=== PATIENT | female | born 1950 | race Caucasian/White ===

== ENCOUNTER 2018-05-15 12:52 | Inpatient (IN) | payer OTHER ==
--- NOTE | 2018-05-15 13:56 | PDOC ---
Attending Attestation - Resident Resident Name: Demetrius Coates - ED Attending Attestation I have performed the following: I have examined & evaluated the patient, The case was reviewed & discussed with the resident, I agree w/resident's findings & plan, Exceptions are as noted - HPI HPI: 05/15/18 15:48 The patient is a 67-year-old female, with a history of IDDM, HTN, HLD, CVA, TB ( treated in [place] with unknown regimen), and bradycardia s/p pacemaker, who presents ED with 2 weeks of bloody sputum. She reports sputum mixed with specs of bright red blood 4-5 times per day. Denies coughing up clots or more than a teaspoon of blood at a time. Patient also endorses shortness of breath, night sweats, and subjective fevers and chills. Patient reports that she has a history of TB and was treated in [place] with pills. She also reports 4 lbs weight loss in the past 2 weeks. She denies any fevers/chills, nausea, vomiting, diarrhea, or abdominal pain. Denies any chest pain or palpitations. Allergies: NKA Social History: None reported. Surgical History: Pacemaker placement. PCP: Dr. Ambrosio - Physicial Exam PE: 05/15/18 15:55 agree with resident exam - Medical Decision Making 05/15/18 15:55 67yo F hx TB s/p treatment presents to the ED with shortness of breath, night sweats, and subjective fevers and chills. Vitals unremarkable. Exam with clear lungs. Concern for recurrent TB vs PNA vs PE vs viral syndrome. Plan for labs, XR, CTA, admit. Case discussed with Dr Hung who will see pt 05/15/18 16:[address] Ambrosio at bedside, pt admitted for further eval Case discussed in detail with admitting physician including history, physical exam and ancillary studies. Admitting physician has assumed care for the patient, will follow all pending diagnostics and will complete the evaluation and treatment.
--- NOTE | 2018-05-15 14:11 | PDOC ---
History of Present Illness - General Chief Complaint: Respiratory Stated Complaint: DEHYDRATED Time Seen by Provider: 05/15/18 13:23 History Source: Patient Exam Limitations: No Limitations - History of Present Illness Initial Comments: 67 yo h/o TB treated in [place], TIA, bradycardia s/p pacemaker, IDDM, HTN, HLD p/w blood in sputum x 2 weeks. She endorses 2 weeks of bloody sputum and describes as "a lot of blood in yellow sputum", also a/w night sweat, 4 lbs of weight loss in 2 weeks, subjective fever and chills. Pt recalls being treated for TB with pills in [place] for long time. She came to the [place] in the 80s. Had BCG vaccine when little. PPD -ve since the treatment. She's also SOB at rest and on exertion but denies any h/o heart disease except placement of pacemaker. Further denies n/v, headache, diarrhea, urinary sx. 05/15/18 15:03 Basic labs, CXR showed L upper lobe granuloma w/ chest wall calificaton. Based on clinical presentation and the fact patient was [place], Will admit the patient for TB treatment 05/15/18 18:42 Patient is extremely agitated, combative and refuses CT scan and further treatment. Numerous attempts made by several health care providers including residents, attendings, nurse manager eligibility, security and family members but patient failed to reason due to acute psychotic episode. With the help of security and other health care providers, patient was held down and received 2 mg of haldol IM. CT chest is postphoned. Unable to obtain EKG due to her current mental condition. Therefore, QTc is unknown. However, for acute psychosis management, both benzo (ativan) and haldol will further prolong Qtc. Spoke to Dr. Ambrosio, and he will come to see the patient. Will cancel haldol PRN order and place 1:1 observation order. Past History - Past Medical History Allergies/Adverse Reactions: Allergies Allergy/AdvReac Type Severity Reaction Status Date / Time No Known Allergies Allergy Unverified 05/15/18 13:01 CVA: Yes COPD: No Diabetes: Yes HTN: Yes Seizures: Yes Other medical history: TB - Surgical History Cardiac Surgery: (pacemaker) - Suicide/Smoking/Psychosocial Hx Smoking History: Never smoked Review of Systems - Review of Systems Able to Perform ROS?: Yes Is the patient limited Occitan proficient: No Constitutional: Yes: Chills, Fever, Night Sweats, Unexplained wgt Loss (4 lbs in 2 weeks) Respiratory: Yes: Cough, Shortness of Breath, Productive cough, Hemoptysis Cardiac (ROS): No: Chest Pain, Edema, Irregular Heart Rate, Lightheadedness, Palpitations : No: Dysuria, Discharge Neurological: No: Headache, Numbness, Paresthesia *Physical Exam - Vital Signs Last Vital Signs Temp Pulse Resp BP Pulse Ox 99.1 F 98 H 18 128/81 98 05/15/18 12:58 05/15/18 12:58 05/15/18 12:58 05/15/18 12:58 05/15/18 13:39 - Physical Exam General Appearance: No: Apparent Distress Respiratory/Chest: positive: Lungs Clear, Decreased Breath Sounds. negative: Crackles, Rales, Wheezing Cardiovascular: positive: Regular Rhythm, Regular Rate, S1, S2. negative: Murmur Gastrointestinal/Abdominal: positive: Normal Bowel Sounds. negative: Tender Neurologic: positive: on call II-XII NML intact, Fully Oriented, Alert ED Treatment Course - LABORATORY CBC & Chemistry Diagram: 05/15/18 13:59 05/15/18 13:59 - RADIOLOGY Radiology Studies Ordered: Category Date Time Status CHEST PA & LAT [RAD] Stat Radiology 05/15/18 13:44 Ordered *DC/Admit/Observation/Transfer Diagnosis at time of Disposition: Tuberculosis - Discharge Dispostion Decision to Admit order: Yes - Referrals - Patient Instructions - Post Discharge Activity
[2018-05-15 14:24] LABS: BASO % 0.4 % (0-2.0); EOS % 0.5 % (0-4.5); HEMOGLOBIN 13.3 GM/dL (10.7-15.3); LYMPH % 25.8 % (8-40); MCH 30.3 pg (25.7-33.7); MCHC 34.2 g/dl (32.0-36.0); MEAN CELL VOLUME 88.8 fl (80-96); MEAN PLT VOLUME 7.9 fl (7.5-11.1); MONO % 9.6 % (3.8-10.2); NEUT % 63.7 % (42.8-82.8); PLATELET COUNT 230 K/MM3 (134-434); RDW 14.8 % (11.6-15.6); WHITE BLOOD COUNT 6.5 K/mm3 (4.0-10.0)
[2018-05-15 14:30] LABS: INR 1.13 (0.83-1.09); PROTHROMBIN TIME (PATIENT) 13.3 SEC (9.7-13.0)
[2018-05-15 14:43] LABS: ALBUMIN 3.9 g/dl (3.4-5.0); ALK PHOS 92 U/L (45-117); ANION GAP 10 MMOL/L (8-16); BILIRUBIN,TOTAL 0.7 mg/dL (0.2-1); BLOOD UREA NITROGEN 6 mg/dL (7-18); CALCIUM 8.8 mg/dL (8.5-10.1); CHLORIDE 108 mmol/L (98-107); CO2 23 mmol/L (21-32); CREATININE 0.7 mg/dL (0.55-1.3); GLUCOSE,RANDOM 228 mg/dL (74-106); N-TERMINAL BNP 41.2 pg/ml (5-125); POTASSIUM 3.3 mmol/L (3.5-5.1); SGOT/AST 171 U/L (15-37); SGPT/ALT 86 U/L (13-61); SODIUM 141 mmol/L (136-145); TOT PROT 7.4 g/dl (6.4-8.2)
[2018-05-15] MEDS: SODIUM CHLORIDE 1,000 ML IV SCH ×2 (16:28→21:30)
[2018-05-15] MEDS ORDERED: HALOPERIDOL LACTATE 5 MG/ML IM ONE ×2 (18:08→18:32)
[2018-05-15] MEDS ORDERED: HALOPERIDOL LACTATE 5 MG/ML IM PRN (18:32)
--- NOTE | 2018-05-15 20:10 | HP ---
CHIEF COMPLAINT:blood in sputum for few days PCP:dr Carreon HISTORY OF PRESENT ILLNESS: The patient is a 67-year-old female, with a history of IDDM, HTN, HLD, CVA, TB ( treated in [place] with unknown regimen), and bradycardia s/p pacemaker, who presents ED with 2 weeks of bloody sputum.Now after talking to patient she said that she is bleeding from nose and after she cough up blood . she has no h/o wt loss or night sweats and no body around who has tuberculosis . She reports sputum mixed with specs of bright red blood 4-5 times per day. Denies coughing up clots or more than a teaspoon of blood at a time.She has no h /o any fever or chills she live with her daughter who is with her. Patient reports that she has a history of TB and was treated in [place] with pills. She also reports 4 lbs weight loss in the past 2 weeks. ER course was notable for: (1)blood in phlegm (2)h/o treated TB (3)normal wbc count Recent Travel:none PAST MEDICAL HISTORY: IDDM, HTN, HLD, CVA, TB (treated in [place] with unknown regimen), and bradycardia s/p pacemaker,and bipolar disorder PAST SURGICAL HISTORY: PPm Social History: Smoking:none Alcohol:none Drugs: none Family History: Allergies No Known Allergies Allergy (Unverified 05/15/18 13:01) HOME MEDICATIONS: REVIEW OF SYSTEMS CONSTITUTIONAL: Absent: fever, chills, diaphoresis, generalized weakness, malaise, loss of appetite, weight change HEENT: Absent: rhinorrhea, nasal congestion, throat pain, throat swelling, difficulty swallowing, mouth swelling, ear pain, eye pain, visual changes CARDIOVASCULAR: Absent: chest pain, syncope, palpitations, irregular heart rate, lightheadedness , peripheral edema RESPIRATORY: Absent: shortness of breath, dyspnea with exertion, orthopnea, wheezing, stridor,Present hemoptysis and cough GASTROINTESTINAL: Absent: abdominal pain, abdominal distension, nausea, vomiting, diarrhea, constipation, melena, hematochezia GENITOURINARY: Absent: dysuria, frequency, urgency, hesitancy, hematuria, flank pain, genital pain MUSCULOSKELETAL: Absent: myalgia, arthralgia, joint swelling, back pain, neck pain SKIN: Absent: rash, itching, pallor HEMATOLOGIC/IMMUNOLOGIC: Absent: easy bleeding, easy bruising, lymphadenopathy, frequent infections ENDOCRINE: Absent: unexplained weight gain, unexplained weight loss, heat intolerance, cold intolerance NEUROLOGIC: Absent: headache, focal weakness or paresthesias, dizziness, unsteady gait, seizure, mental status changes, bladder or bowel incontinence PHYSICAL EXAMINATION Vital Signs - 24 hr 05/15/18 05/15/18 05/15/18 12:58 13:39 19:44 Temperature 99.1 F 98.5 F Pulse Rate 98 H 91 H Respiratory 18 20 Rate Blood Pressure 128/81 121/68 O2 Sat by Pulse 97 98 Oximetry (%) GENERAL: Awake, alert, and fully oriented, in no acute distress. HEAD: Normal with no signs of trauma. EYES: Pupils equal, round and reactive to light, extraocular movements intact, sclera anicteric, conjunctiva clear. No lid lag. EARS, NOSE, THROAT: Ears normal, nares patent, oropharynx clear without exudates. Moist mucous membranes.no dry blood noted in her nose NECK: Normal range of motion, supple without lymphadenopathy, JVD, or masses. LUNGS: Breath sounds equal, clear to auscultation bilaterally. No wheezes, and no crackles. No accessory muscle use. HEART: Regular rate and rhythm, normal S1 and S2 without murmur, rub or gallop. ABDOMEN: Soft, nontender, not distended, normoactive bowel sounds, no guarding, no rebound, no masses. No hepatomegaly or splenomegaly. MUSCULOSKELETAL: Normal range of motion at all joints. No bony deformities or tenderness. No CVA tenderness. UPPER EXTREMITIES: 2+ pulses, warm, well-perfused. No cyanosis. No clubbing. No peripheral edema. LOWER EXTREMITIES: 2+ pulses, warm, well-perfused. No calf tenderness. No peripheral edema. NEUROLOGICAL: Cranial nerves II-XII intact. Normal speech. Normal gait. SKIN: Warm, dry, normal turgor, no rashes or lesions noted, normal capillary refill. Laboratory Results - last 24 hr 05/15/18 05/15/18 05/15/18 13:59 13:59 13:59 WBC 6.5 RBC 4.40 Hgb 13.3 Hct 39.0 MCV 88.8 MCH 30.3 MCHC 34.2 RDW 14.8 Plt Count 230 MPV 7.9 Absolute Neuts (auto) 4.1 Neutrophils % 63.7 Lymphocytes % 25.8 Monocytes % 9.6 Eosinophils % 0.5 Basophils % 0.4 Nucleated RBC % 0 PT with INR 13.30 H INR 1.13 H Sodium 141 Potassium 3.3 L Chloride 108 H Carbon Dioxide 23 Anion Gap 10 BUN 6 L Creatinine 0.7 Creat Clearance w eGFR 83.98 Random Glucose 228 H Calcium 8.8 Total Bilirubin 0.7 AST 171 H ALT 86 H Alkaline Phosphatase 92 B-Natriuretic Peptide 41.2 Total Protein 7.4 Albumin 3.9 ASSESSMENT/PLAN: This is 67 yrs old lady with IDDM, HTN, HLD, CVA, TB (treated in [place] with unknown regimen), and bradycardia s/p pacemaker,came to er with questionable h/ o hemoptysis Plan will admit and start on abx and stool for afb times [address] scan of chest ro any cause of bleeding dm start on coverage htn start on norvasc and lisinopril high lipids continue simvastatin d/w son and daughter start on iv fluids dvt prophylaxis is not needed bc she is ambulatory Visit type - Emergency Visit Emergency Visit: Yes ED Registration Date: 05/15/18 Care time: The patient presented to the Emergency Department on the above date and was hospitalized for further evaluation of their emergent condition. - New Patient This patient is new to me today: Yes Date on this admission: 05/15/18 - Critical Care Critical Care patient: No
[2018-05-15 20:34] VITALS: BMI 30.9
[2018-05-15] MEDS ORDERED: CEFTRIAXONE 1 GM in DEXTROSE 5%-WATER - 50 ML IVPB SCH (20:45)
[2018-05-15] MEDS ORDERED: cefTRIAXone SODIUM 1 GM VIAL ONE (21:01)
[2018-05-15] MEDS ORDERED: DEXTROSE 5%-WATER - 50 ML IVPB ONE (21:01)
[2018-05-15] MEDS: INSULIN SLIDING SCALE (NOVOLOG) 1 VIAL SQ SCH (21:22)
[2018-05-15] MEDS: CEFTRIAXONE 1 GM in DEXTROSE 5%-WATER - 50 ML IVPB SCH (21:31)
[2018-05-15] MEDS: AMITRIPTYLINE HCL 25 MG TABLET (FP) PO SCH (22:07)
[2018-05-16] MEDS: LEVOTHYROXINE NA 25 MCG TABLET (FP) PO SCH (06:15)
[2018-05-16] MEDS: INSULIN SLIDING SCALE (NOVOLOG) 1 VIAL SQ SCH ×4 (06:20→22:13)
[2018-05-16] MEDS ORDERED: LEVOTHYROXINE NA 75 MCG TABLET (FP) PO SCH (07:00)
--- NOTE | 2018-05-16 09:15 | PN ---
Progress Note (short form) - Note Progress Note: admitted for hemoptysis and pleuritic chest pain fro past 3-4 days no fever, no chills, lost some weight in past 2 weeks distant TB h/o, treated approx 40 yrs ago in [place] HTN IDDM CVA high cholesterol PPM Vital Signs Period Temp Pulse Resp BP Sys/Lynn Pulse Ox Last 24 Hr 97.8 F-99.1 F 74-98 18-20 116-128/59-81 97-98 S1S2 RRR +SM lung decreased BS at bases, no wheezing, no rhonchi abd soft no edema aaox3 chest CT done-result pending cont iv ceftriaxone for now sputum AFB has been ordered cont isolation replete hypokalemia stop ivfluids ID and pulm eval requested
[2018-05-16] MEDS ORDERED: POTASSIUM CHLORIDE TABS 20 MEQ TABLET.ER (FP) PO ONE (09:30)
--- NOTE | 2018-05-16 10:17 | CON.PULM ---
Consult Consult Specialty:: PULMONARY Referred by:: Dr Ambrosio Reason for Consultation:: hemoptysis - History of Present Illness Chief Complaint: hemoptysis History of Present Illness: 67yo female with h/o HTN, DM, hyperlipidemia, h/o CVA, s/p PPM, h/o TB in the 1970s treated x 1 year who was admitted with cough with hemoptysis x 2 weeks. Denies any chest pain or palpitations. No shortness of breath or wheezing. She describes the hemoptysis as specks of blood. No fevers, chills or sweats. No unintentional weight loss. Does report episodes of epistaxis as well. She is a nonsmoker. No further episodes since admission. - History Source History Provided By: Patient, Medical Record Limitations to Obtaining History: Language Barrier - Past Medical History Cardio/Vascular: Yes: HTN, Hyperlipdemia Endocrine: Yes: Diabetes Mellitus - Alcohol/Substance Use Hx Alcohol Use: No - Smoking History Smoking history: Never smoked Home Medications - Allergies Allergies/Adverse Reactions: Allergies Allergy/AdvReac Type Severity Reaction Status Date / Time No Known Allergies Allergy Unverified 05/15/18 13:01 Review of Systems - Review of Systems Constitutional: denies: Chills, Fever, Weakness Eyes: denies: Recent Change in Vision HENT: denies: Nasal Congestion, Throat Pain Neck: denies: Stiffness, Tenderness Cardiovascular: denies: Chest Pain, Shortness of Breath Respiratory: reports: Cough, Hemoptysis. denies: SOB on Exertion, Wheezing Gastrointestinal: denies: Abdominal Pain, Nausea, Vomiting Genitourinary: denies: Dysuria, Hematuria Neurological: denies: Dizziness, Headache Endocrine: denies: Unexplained Weight Loss Physical Exam Vital Sings: Vital Signs Temperature 98.9 F 05/16/18 07:03 Pulse Rate 74 05/16/18 07:03 Respiratory Rate 20 05/16/18 07:03 Blood Pressure 116/59 L 05/16/18 07:03 O2 Sat by Pulse Oximetry (%) 98 05/15/18 20:22 Constitutional: Yes: Calm Eyes: Yes: Conjunctiva Clear, EOM Intact HENT: Yes: Atraumatic, Normocephalic Neck: Yes: Supple, Trachea Midline Cardiovascular: Yes: Regular Rate and Rhythm Respiratory: Yes: Diminished (decreased breath sounds at the bases) Labs: CBC, BMP 05/15/18 13:59 05/15/18 13:59 Imaging - Results Chest X-ray: Report Reviewed, Image Reviewed (OCTAVIA granuloma) Assessment/Plan Hemoptysis Suspect Epistaxis vs Acute Bronchitis h/o Remote TB HTN DM Hyperlipidemia h/o CVA s/p PPM - agree with CT chest - empiric antibiotics for now - f/u cultures - clinically less likely TB - DVT prophylaxis - further recommendations pending CT chest Thank you for this consult Jordan Hernandez MD
[2018-05-16] MEDS ORDERED: cefTRIAXone SODIUM 1 GM VIAL ONE (10:32)
[2018-05-16] MEDS ORDERED: DEXTROSE 5%-WATER - 50 ML IVPB ONE (10:33)
[2018-05-16] MEDS: CEFTRIAXONE 1 GM in DEXTROSE 5%-WATER - 50 ML IVPB SCH (10:50)
[2018-05-16] MEDS: RAMIPRIL 5 MG CAPSULE (FP) PO SCH (10:50)
[2018-05-16] MEDS: amLODIPine BESYLATE 10 MG TABLET (FP) PO SCH (10:51)
[2018-05-16] MEDS: AZITHROMYCIN IVPB 500 MG/250 ML BAG IVPB SCH (11:11)
--- NOTE | 2018-05-16 13:28 | PN ---
Progress Note (short form) - Note Progress Note: ID consult dictated imp/reccd 67 yo female with cough with flecks of blood in her sputum admitted for hemoptysis history of tb in the 1970s treated one year abnl lfts remote etoh history history of CVA and bipolar disorder agree with afb isolation sputum afb times 3 NAAT for afb chest ct rocephin/zith- ?pna, ?bronchitis hiv testing (she agrees) workup for lfts? check hep c in am repet lfts consider liver sonogram will check with PMD Problem List - Problems (1) Hemoptysis Code(s): R04.2 - HEMOPTYSIS (2) Abnormal LFTs Code(s): R94.5 - ABNORMAL RESULTS OF LIVER FUNCTION STUDIES (3) History of tuberculosis Code(s): Z86.11 - PERSONAL HISTORY OF TUBERCULOSIS
--- NOTE | 2018-05-16 18:14 | CONS ---
DATE OF CONSULTATION: 05/16/2018 DATE OF DICTATION: 05/16/2018 INFECTIOUS DISEASE CONSULTATION HISTORY OF PRESENT ILLNESS: This is a 67-year-old woman who comes to the hospital on the . She lives in the community with her . She came to the ER with her daughter. She gives a history of 2 weeks of cough with some intermittent specks of blood. She has not had any annie hemoptysis. She has had no fevers or chills. She does note that she has lost 4 pounds in the last several weeks. She really has no appetite, and she denies to me any night sweats or shortness of breath. She is originally from [place]. She has been in this country since the 80s. She lives with her . She gives a history of having had tuberculosis treated for 1 year with pills while living in [place] in the 70s. She saw her primary, Dr. Ambrosio, as an outpatient and was treated. She is not sure with what. She actually reports she was feeling better, but her daughter insisted that she come to the hospital. PAST MEDICAL HISTORY: She has a past medical history of diabetes, hypertension, hyperlipidemia, CVA. SOCIAL HISTORY: Notable for a pacemaker. She also has a history of bipolar disorder. There is no history of cigarette or substance use. She has no known drug allergies. She gives a remote history of alcohol use in the past, none for the last 10 years. MEDICATION: Include at home, the list is not available. FAMILY HISTORY: Unremarkable. REVIEW OF SYSTEMS: She reports feeling well. She says she goes every 3 months to get her permanent pacemaker checked, and once a year she sees a doctor for her head. PHYSICAL EXAMINATION: GENERAL: She is awake and alert. She has had no fevers since admission. VITAL SIGNS: Temperature is 98.9, pulse 74, blood pressure 116/59, respiratory rate 20, she weighs 71 kg. HEENT: Normocephalic. Eyes are anicteric. She has good dentition. She has no thrush. NECK: Supple. She has no adenopathy. LUNGS: Clear to auscultation. HEART: Regular rate and rhythm. ABDOMEN: Soft, nontender. EXTREMITIES: Without edema. LABORATORY: Notable for a normal white count of 6.5, normal hemoglobin of 13.3, platelets are 230, INR is 1.1. BUN and creatinine are 6 and 0.7 with a glucose of 228. Of note she has an AST of 171 and an ALT of 86. She had a chest x-ray done in the emergency room that was notable for a left upper lobe granuloma. There was no evidence of infiltrate. IMPRESSION: 1. In summary, this is a 67-year-old woman with a remote history of tuberculosis in the 70s treated for 1 year who now presents with cough with some blood specks in her sputum for the last 2 weeks. This could be bronchitis, this could be less likely reactivation of tuberculosis. Would agree with the isolation with the CAT scan that has been ordered, and sputum AFBs. She has been started on ceftriaxone and Zithromax, which seems appropriate at this time. 2. Abnormal liver function tests, etiology unclear. Will speak with the primary doctor and find out if she has had any further workup or if indeed this is new. She has consented to HIV testing as well, which we will obtained. Further recommendations to follow. Gricelda [id number]
[2018-05-16] MEDS: AMITRIPTYLINE HCL 25 MG TABLET (FP) PO SCH (22:07)
[2018-05-17] MEDS: INSULIN SLIDING SCALE (NOVOLOG) 1 VIAL SQ SCH ×4 (06:04→21:55)
[2018-05-17] MEDS: LEVOTHYROXINE NA 25 MCG TABLET (FP) PO SCH (06:04)
[2018-05-17 06:13] LABS: BASO % 0.3 % (0-2.0); EOS % 1.8 % (0-4.5); HEMATOCRIT 40.6 % (32.4-45.2); HEMOGLOBIN 13.8 GM/dL (10.7-15.3); LYMPH % 35.2 % (8-40); MCH 30.1 pg (25.7-33.7); MEAN CELL VOLUME 88.7 fl (80-96); MEAN PLT VOLUME 7.7 fl (7.5-11.1); MONO % 9.1 % (3.8-10.2); NEUT % 53.6 % (42.8-82.8); PLATELET COUNT 230 K/MM3 (134-434); RBC 4.58 M/mm3 (3.60-5.2); RDW 14.4 % (11.6-15.6); WHITE BLOOD COUNT 6.7 K/mm3 (4.0-10.0)
[2018-05-17 06:42] LABS: ALBUMIN 3.8 g/dl (3.4-5.0); BILIRUBIN,DIRECT 0.3 mg/dL (0.0-0.2); TOT PROT 7.3 g/dl (6.4-8.2)
[2018-05-17 06:43] LABS: ALBUMIN 3.7 g/dl (3.4-5.0); ALK PHOS 88 U/L (45-117); ANION GAP 8 MMOL/L (8-16); BILIRUBIN,TOTAL 0.8 mg/dL (0.2-1); BLOOD UREA NITROGEN 8 mg/dL (7-18); CALCIUM 8.5 mg/dL (8.5-10.1); CHLORIDE 106 mmol/L (98-107); CO2 26 mmol/L (21-32); CREATININE 0.6 mg/dL (0.55-1.3); GLUCOSE,RANDOM 139 mg/dL (74-106); POTASSIUM 3.2 mmol/L (3.5-5.1); SGOT/AST 109 U/L (15-37); SGPT/ALT 83 U/L (13-61); SODIUM 141 mmol/L (136-145); TOT PROT 7.3 g/dl (6.4-8.2)
[2018-05-17] MEDS ORDERED: DEXTROSE 5%-WATER - 50 ML IVPB ONE (09:00)
[2018-05-17] MEDS ORDERED: cefTRIAXone SODIUM 1 GM VIAL ONE (09:00)
[2018-05-17] MEDS: RAMIPRIL 5 MG CAPSULE (FP) PO SCH (09:16)
[2018-05-17] MEDS: POTASSIUM CHLORIDE TABS 20 MEQ TABLET.ER (FP) PO SCH (09:16)
[2018-05-17] MEDS: AZITHROMYCIN IVPB 500 MG/250 ML BAG IVPB SCH (09:16)
[2018-05-17] MEDS: amLODIPine BESYLATE 10 MG TABLET (FP) PO SCH (09:17)
[2018-05-17] MEDS: CEFTRIAXONE 1 GM in DEXTROSE 5%-WATER - 50 ML IVPB SCH (09:17)
--- NOTE | 2018-05-17 09:18 | PN ---
Progress Note (short form) - Note Progress Note: CBC, BMP 05/17/18 05:10 05/17/18 05:10 Vital Signs Period Temp Pulse Resp BP Sys/Lynn Pulse Ox Last 24 Hr 97.7 F-98.2 F 78-102 18-20 83-142/57-76 93 Microbiology 05/16/18 11:10 Sputum - Expectorated Direct Acid Fast Bacilli Smear positive 05/15/18 13:59 Blood - Peripheral Venous Blood Culture - Preliminary NO GROWTH OBTAINED AFTER 24 HOURS, INCUBATION TO CONTINUE FOR 4 DAYS. 05/15/18 13:59 Blood - Peripheral Venous Blood Culture - Preliminary NO GROWTH OBTAINED AFTER 24 HOURS, INCUBATION TO CONTINUE FOR 4 DAYS. S1S2 RRR +SM lung decreased BS at bases, no wheezing, no rhonchi abd soft no edema aaox3 admitted for hemoptysis and pleuritic chest pain fro past 3-4 days no fever, no chills, lost some weight in past 2 weeks distant TB h/o, treated approx 40 yrs ago in [place] HTN IDDM CVA high cholesterol PPM Bipolar disorder chest CT with old granulomatous disease-no active infiltrate known cirrhosis as per daughter, distant h/o alcoholism does not drink any more cont iv ceftriaxone for now sputum AFB x3 cont isolation replete hypokalemia right breast mass-most recent mammo at [facility] showed calcified stable breast masses, once pt is discharged will have to f/up for repeat outpt imaging ID and pulm bianka appreciated d/w daughter at length
--- NOTE | 2018-05-17 10:17 | PN ---
Progress Note (short form) - Note Progress Note: PULMONARY No further hemoptysis. No fevers or chills. CT chest showing OCTAVIA granuloma and fibrotic changes. Sputum positive for rare AFB. Vital Signs Period Temp Pulse Resp BP Sys/Lynn Pulse Ox Last 24 Hr 97.7 F-98.3 F 78-102 18-20 83-142/57-84 93 Gen: NAD at rest Heart: RRR Lung: decreased breath sounds at the bases Abd: soft, nontender Ext: no edema CBC, BMP 05/17/18 05:10 05/17/18 05:10 Active Medications Amitriptyline HCl (Elavil -) 25 mg PO HS [facility] Last Admin: 05/16/18 22:07 Dose: 25 mg Amlodipine Besylate (Norvasc -) 10 mg PO DAILY [facility] Last Admin: 05/17/18 09:17 Dose: 10 mg Ceftriaxone Sodium 1 gm/ (Dextrose) 50 mls @ 100 mls/hr IVPB DAILY [facility]; Protocol Last Admin: 05/17/18 09:17 Dose: 100 mls/hr Azithromycin (Zithromax 500mg Ivpb (Pre-Docked)) 500 mg in 250 mls @ 250 mls/ hr IVPB DAILY [facility] Stop: 05/20/18 10:59 Last Admin: 05/17/18 09:16 Dose: 250 mls/hr Insulin Aspart (Novolog Vial Sliding Scale -) 1 vial SQ ACHS [facility]; Protocol Last Admin: 05/17/18 06:04 Dose: Not Given Levothyroxine Sodium (Synthroid -) 25 mcg PO DAILY@0700 [facility] Last Admin: 05/17/18 06:04 Dose: 25 mcg Potassium Chloride (K-Dur -) 40 meq PO DAILY [facility] Last Admin: 05/17/18 09:16 Dose: 40 meq Ramipril (Altace -) 10 mg PO DAILY [facility] Last Admin: 05/17/18 09:16 Dose: 10 mg A/P Hemoptysis Suspect Epistaxis vs Acute Bronchitis h/o Remote TB Liver Cirrhosis HTN DM Hyperlipidemia h/o CVA s/p PPM - continue empiric antibiotics - f/u cultures - clinically less likely TB, await PCR - replete lytes - DVT prophylaxis
[2018-05-17] MEDS ORDERED: PT OWN MED DRAWER 7, Y5N ONE (21:10)
[2018-05-17] MEDS: AMITRIPTYLINE HCL 25 MG TABLET (FP) PO SCH (21:46)
[2018-05-18] MEDS: LEVOTHYROXINE NA 25 MCG TABLET (FP) PO SCH (06:05)
[2018-05-18] MEDS: INSULIN SLIDING SCALE (NOVOLOG) 1 VIAL SQ SCH ×4 (06:11→22:46)
[2018-05-18 07:36] LABS: ANION GAP 8 MMOL/L (8-16); BLOOD UREA NITROGEN 8 mg/dL (7-18); CALCIUM 8.4 mg/dL (8.5-10.1); CHLORIDE 103 mmol/L (98-107); CO2 28 mmol/L (21-32); CREATININE 0.6 mg/dL (0.55-1.3); GLUCOSE,RANDOM 140 mg/dL (74-106); POTASSIUM 3.4 mmol/L (3.5-5.1); SODIUM 139 mmol/L (136-145)
[2018-05-18] MEDS ORDERED: cefTRIAXone SODIUM 1 GM VIAL ONE (11:31)
[2018-05-18] MEDS ORDERED: DEXTROSE 5%-WATER - 50 ML IVPB ONE (11:31)
[2018-05-18] MEDS: CEFTRIAXONE 1 GM in DEXTROSE 5%-WATER - 50 ML IVPB SCH (11:37)
[2018-05-18] MEDS: RAMIPRIL 5 MG CAPSULE (FP) PO SCH (11:38)
[2018-05-18] MEDS: POTASSIUM CHLORIDE TABS 20 MEQ TABLET.ER (FP) PO SCH (11:38)
[2018-05-18] MEDS: AZITHROMYCIN IVPB 500 MG/250 ML BAG IVPB SCH (11:38)
[2018-05-18] MEDS: amLODIPine BESYLATE 10 MG TABLET (FP) PO SCH (11:38)
--- NOTE | 2018-05-18 13:27 | PN ---
Progress Note (short form) - Note Progress Note: CBC, BMP 05/17/18 05:10 05/17/18 05:10 Vital Signs Period Temp Pulse Resp BP Sys/Lynn Pulse Ox Last 24 Hr 97.7 F-98.2 F 78-102 18-20 83-142/57-76 93 Microbiology 05/16/18 11:10 Sputum - Expectorated Direct Acid Fast Bacilli Smear positive , MTB probe negative 05/15/18 13:59 Blood - Peripheral Venous Blood Culture - Preliminary NO GROWTH OBTAINED AFTER 24 HOURS, INCUBATION TO CONTINUE FOR 4 DAYS. 05/15/18 13:59 Blood - Peripheral Venous Blood Culture - Preliminary NO GROWTH OBTAINED AFTER 24 HOURS, INCUBATION TO CONTINUE FOR 4 DAYS. Vital Signs Period Temp Pulse Resp BP Sys/Lynn Pulse Ox Last 24 Hr 98.1 F-98.7 F 78-101 18-20 131-138/77-87 S1S2 RRR +SM lung clear abd soft no edema aaox3 admitted for hemoptysis and pleuritic chest pain fro past 3-4 days no fever, no chills, lost some weight in past 2 weeks distant TB h/o, treated approx 40 yrs ago in [place] HTN IDDM CVA high cholesterol PPM Bipolar disorder chest CT with old granulomatous disease-no active infiltrate known cirrhosis as per daughter, distant h/o alcoholism does not drink any more cont iv ceftriaxone for now sputum AFB x3 cont isolation replete hypokalemia right breast mass-most recent mammo at [facility] showed calcified stable breast masses, once pt is discharged will have to f/up for repeat outpt imaging ID and pulm eval appreciated cont present care
--- NOTE | 2018-05-18 14:15 | PN ---
Progress Note (short form) - Note Progress Note: no fevers cough has resolved Vital Signs Period Temp Pulse Resp BP Sys/Lynn Pulse Ox Last 24 Hr 98.1 F-98.5 F 78-101 18-20 114-138/67-87 cor-rrr lungs clear abd soft,nt ext no edema CBC, BMP 05/17/18 05:10 05/18/18 06:30 Microbiology 05/17/18 16:35 Sputum - Expectorated AFB Smear Concentration - Preliminary 05/17/18 16:35 Sputum - Expectorated Direct Acid Fast Bacilli Smear - Final 05/17/18 16:35 Sputum - Expectorated Mycobacterial Culture - Preliminary 05/15/18 13:59 Blood - Peripheral Venous Blood Culture - Preliminary NO GROWTH OBTAINED AFTER 72 HOURS, INCUBATION TO CONTINUE FOR 2 DAYS. 05/15/18 13:59 Blood - Peripheral Venous Blood Culture - Preliminary NO GROWTH OBTAINED AFTER 72 HOURS, INCUBATION TO CONTINUE FOR 2 DAYS. 05/16/18 22:00 Sputum - Expectorated AFB Smear Concentration - Final 05/16/18 22:00 Sputum - Expectorated Direct Acid Fast Bacilli Smear - Final 05/16/18 22:00 Sputum - Expectorated Mycobacterial Culture - Preliminary 05/16/18 11:10 Sputum - Expectorated AFB Smear Concentration - Final 05/16/18 11:10 Sputum - Expectorated Direct Acid Fast Bacilli Smear - Final HIV negative history of CVA and bipolar disorder a/p continue afb isolation sputum afb times 3 NAAT for afb chest ct no acute changes noted rocephin/zith- ?pna, ?bronchitis ?liver cirrhosis- prior history etoh use d/w PMD awaiting 3rd sputum afb and NAAT ?atypical mycobacteria Problem List - Problems (1) Hemoptysis Code(s): R04.2 - HEMOPTYSIS (2) Abnormal LFTs Code(s): R94.5 - ABNORMAL RESULTS OF LIVER FUNCTION STUDIES (3) History of tuberculosis Code(s): Z86.11 - PERSONAL HISTORY OF TUBERCULOSIS
--- NOTE | 2018-05-18 15:14 | PN ---
Progress Note (short form) - Note Progress Note: PULMONARY No further hemoptysis. No fevers or chills. MTB complex negative x 1. Vital Signs Period Temp Pulse Resp BP Sys/Lynn Pulse Ox Last 24 Hr 98.1 F-98.7 F 78-101 18-20 131-138/77-87 Gen: NAD at rest Heart: RRR Lung: decreased breath sounds at the bases Abd: soft, nontender Ext: no edema CBC, BMP 05/17/18 05:10 05/18/18 06:30 Active Medications Amitriptyline HCl (Elavil -) 25 mg PO HS RIGOBERTO Last Admin: 05/17/18 21:46 Dose: 25 mg Amlodipine Besylate (Norvasc -) 10 mg PO DAILY RIGOBERTO Last Admin: 05/18/18 11:38 Dose: 10 mg Ceftriaxone Sodium 1 gm/ (Dextrose) 50 mls @ 100 mls/hr IVPB DAILY [facility]; Protocol Last Admin: 05/18/18 11:37 Dose: 100 mls/hr Azithromycin (Zithromax 500mg Ivpb (Pre-Docked)) 500 mg in 250 mls @ 250 mls/ hr IVPB DAILY RIGOBERTO Stop: 05/20/18 10:59 Last Admin: 05/18/18 11:38 Dose: 250 mls/hr Insulin Aspart (Novolog Vial Sliding Scale -) 1 vial SQ ACHS RIGOBERTO; Protocol Last Admin: 05/18/18 11:41 Dose: 4 units Levothyroxine Sodium (Synthroid -) 25 mcg PO DAILY@0700 RIGOBERTO Last Admin: 05/18/18 06:05 Dose: 25 mcg Potassium Chloride (K-Dur -) 40 meq PO DAILY RIGOBERTO Last Admin: 05/18/18 11:38 Dose: 40 meq Ramipril (Altace -) 10 mg PO DAILY RIGOBERTO Last Admin: 05/18/18 11:38 Dose: 10 mg A/P Hemoptysis resolved Suspect Epistaxis vs Acute Bronchitis h/o Remote TB Liver Cirrhosis HTN DM Hyperlipidemia h/o CVA s/p PPM - continue empiric antibiotics - f/u cultures - clinically less likely TB, await PCR - replete lytes - DVT prophylaxis
[2018-05-18] MEDS ORDERED: PT OWN MED DRAWER 7, Y5N ONE (21:11)
[2018-05-18] MEDS: AMITRIPTYLINE HCL 25 MG TABLET (FP) PO SCH (22:49)
[2018-05-19] MEDS: LEVOTHYROXINE NA 25 MCG TABLET (FP) PO SCH (06:29)
[2018-05-19] MEDS: INSULIN SLIDING SCALE (NOVOLOG) 1 VIAL SQ SCH ×4 (06:30→22:24)
[2018-05-19] MEDS ORDERED: INSULIN (NOVOLOG) ASPART 100 UNITS/ML 10ML VIAL ONE (07:05)
[2018-05-19 07:34] LABS: BASO % 0.4 % (0-2.0); EOS % 2.6 % (0-4.5); HEMATOCRIT 41.8 % (32.4-45.2); HEMOGLOBIN 14.3 GM/dL (10.7-15.3); LYMPH % 31.5 % (8-40); MCH 30.4 pg (25.7-33.7); MCHC 34.3 g/dl (32.0-36.0); MEAN CELL VOLUME 88.5 fl (80-96); NEUT % 56.5 % (42.8-82.8); PLATELET COUNT 243 K/MM3 (134-434); RBC 4.72 M/mm3 (3.60-5.2); RDW 14.3 % (11.6-15.6); WHITE BLOOD COUNT 6.6 K/mm3 (4.0-10.0)
[2018-05-19 08:03] LABS: ALBUMIN 3.7 g/dl (3.4-5.0); ALK PHOS 109 U/L (45-117); ANION GAP 8 MMOL/L (8-16); BILIRUBIN,DIRECT 0.2 mg/dL (0.0-0.2); BILIRUBIN,TOTAL 0.7 mg/dL (0.2-1); BLOOD UREA NITROGEN 10 mg/dL (7-18); CALCIUM 9.1 mg/dL (8.5-10.1); CHLORIDE 103 mmol/L (98-107); CO2 27 mmol/L (21-32); CREATININE 0.6 mg/dL (0.55-1.3); GLUCOSE,RANDOM 159 mg/dL (74-106); POTASSIUM 3.9 mmol/L (3.5-5.1); SGOT/AST 56 U/L (15-37); SGPT/ALT 69 U/L (13-61); SODIUM 138 mmol/L (136-145); TOT PROT 7.7 g/dl (6.4-8.2)
--- NOTE | 2018-05-19 08:41 | PN ---
Progress Note (short form) - Note Progress Note: CBC, BMP 05/19/18 06:05 05/19/18 06:05 Vital Signs Period Temp Pulse Resp BP Sys/Lynn Pulse Ox Last 24 Hr 97.9 F-98.5 F 81-101 18-20 114-156/67-93 97-97 S1S2 RRR +SM lung clear abd soft no edema aaox3 feeling well, no cough, no hemoptysis admitted for hemoptysis and pleuritic chest pain no fever, no chills, lost some weight in past 2 weeks distant TB h/o, treated approx 40 yrs ago in [place] HTN IDDM CVA high cholesterol PPM Bipolar disorder chest CT with old granulomatous disease-no active infiltrate known cirrhosis as per daughter, distant h/o alcoholism does not drink any more cont iv ceftriaxone/azythromycin for now sputum AFB x3 cont isolation replete hypokalemia right breast mass-most recent mammo at [facility] showed calcified stable breast masses, once pt is discharged will have to f/up for repeat outpt imaging ID and pulm eval appreciated cont present care awaiting sputum AFBs x3
--- NOTE | 2018-05-19 10:00 | PN ---
Progress Note (short form) - Note Progress Note: PULMONARY Minimal cough. No hemoptysis. No fevers or chills. Vital Signs Period Temp Pulse Resp BP Sys/Lynn Pulse Ox Last 24 Hr 97.9 F-98.5 F 81-101 18-20 114-156/67-93 97 Gen: NAD at rest Heart: RRR Lung: decreased breath sounds at the bases Abd: soft, nontender Ext: no edema CBC, BMP 05/19/18 06:05 05/19/18 06:05 Active Medications Amitriptyline HCl (Elavil -) 25 mg PO HS COUNT INCLUDES THE [facility] Last Admin: 05/18/18 22:49 Dose: 25 mg Amlodipine Besylate (Norvasc -) 10 mg PO DAILY RIGOBERTO Last Admin: 05/18/18 11:38 Dose: 10 mg Ceftriaxone Sodium 1 gm/ (Dextrose) 50 mls @ 100 mls/hr IVPB DAILY COUNT INCLUDES THE [facility]; Protocol Last Admin: 05/18/18 11:37 Dose: 100 mls/hr Azithromycin (Zithromax 500mg Ivpb (Pre-Docked)) 500 mg in 250 mls @ 250 mls/ hr IVPB DAILY RIGOBERTO Stop: 05/20/18 10:59 Last Admin: 05/18/18 11:38 Dose: 250 mls/hr Insulin Aspart (Novolog Vial Sliding Scale -) 1 vial SQ ACHS RIGOBERTO; Protocol Last Admin: 05/19/18 06:30 Dose: 2 units Levothyroxine Sodium (Synthroid -) 25 mcg PO DAILY@0700 RIGOBERTO Last Admin: 05/19/18 06:29 Dose: 25 mcg Potassium Chloride (K-Dur -) 40 meq PO DAILY RIGOBERTO Last Admin: 05/18/18 11:38 Dose: 40 meq Ramipril (Altace -) 10 mg PO DAILY RIGOBERTO Last Admin: 05/18/18 11:38 Dose: 10 mg A/P Hemoptysis resolved Suspect Epistaxis vs Acute Bronchitis h/o Remote TB Liver Cirrhosis HTN DM Hyperlipidemia h/o CVA s/p PPM - complete empiric antibiotics per ID - clinically less likely TB, await pending studies - DVT prophylaxis
[2018-05-19] MEDS ORDERED: cefTRIAXone SODIUM 1 GM VIAL ONE (11:10)
[2018-05-19] MEDS ORDERED: DEXTROSE 5%-WATER - 50 ML IVPB ONE (11:10)
[2018-05-19] MEDS: CEFTRIAXONE 1 GM in DEXTROSE 5%-WATER - 50 ML IVPB SCH (11:16)
[2018-05-19] MEDS: AZITHROMYCIN IVPB 500 MG/250 ML BAG IVPB SCH (11:21)
[2018-05-19] MEDS: RAMIPRIL 5 MG CAPSULE (FP) PO SCH (11:23)
[2018-05-19] MEDS: amLODIPine BESYLATE 10 MG TABLET (FP) PO SCH (11:23)
[2018-05-19] MEDS: POTASSIUM CHLORIDE TABS 20 MEQ TABLET.ER (FP) PO SCH (11:24)
[2018-05-19] MEDS ORDERED: PT OWN MED DRAWER 7, Y5N ONE (21:36)
[2018-05-19] MEDS: AMITRIPTYLINE HCL 25 MG TABLET (FP) PO SCH (22:24)
[2018-05-20] MEDS: LEVOTHYROXINE NA 25 MCG TABLET (FP) PO SCH (06:17)
[2018-05-20] MEDS: INSULIN SLIDING SCALE (NOVOLOG) 1 VIAL SQ SCH (06:17)
[2018-05-20 06:22] VITALS: BP 127/73; PULSE 77; TEMP 98.1
[2018-05-20] MEDS ORDERED: cefTRIAXone SODIUM 1 GM VIAL ONE (09:19)
[2018-05-20] MEDS ORDERED: DEXTROSE 5%-WATER - 50 ML IVPB ONE (09:20)
--- NOTE | 2018-05-20 09:23 | DS ---
Physical Examination Vital Signs: Vital Signs Temperature 98.1 F 05/20/18 06:00 Pulse Rate 77 05/20/18 06:00 Respiratory Rate 20 05/20/18 06:00 Blood Pressure 127/73 05/20/18 06:00 O2 Sat by Pulse Oximetry (%) 97 05/19/18 21:00 Constitutional: Yes: No Distress, Calm Eyes: Yes: EOM Intact HENT: Yes: Normocephalic Neck: Yes: Trachea Midline Cardiovascular: Yes: Regular Rate and Rhythm Respiratory: Yes: CTA Bilaterally Edema: No Integumentary: Yes: Other (iv site phlebitis present over right forearm) Psychiatric: Yes: WNL Labs: CBC, BMP 05/19/18 06:05 05/19/18 06:05 Discharge Summary Reason For Visit: Hemoptysis Current Active Problems Abnormal LFTs (Acute) Hemoptysis (Acute) History of tuberculosis (Acute) Tuberculosis (Acute) Hospital Course: came to er with c/o scant hemoptysis, given past h/o treated TB was placed on resp. isolation. her three sputums are AFB positive, but MTB probe negative, clinically she has no further hemoptysis, no fever, no chills CT shows old granulomatous disease, n o acute infiltrate pt has no fever, no chills, no cough at present d/w ID , ok to discharge her home with outpt f/up developed mild phlebitis on right forearm over iv site, apply cold packs and oral keflex for 5 days Condition: Fair - Instructions Diet, Activity, Other Instructions: f/up in office next week cold packs to right forearm phlebitis Disposition: HOME - Home Medications Comprehensive Discharge Medication List: Ambulatory Orders Amitriptyline HCl [Elavil -] 25 mg PO HS tablet 05/20/18 Amlodipine Besylate [Norvasc -] 10 mg PO DAILY tablet 05/20/18 Cephalexin [Keflex] 500 mg PO TID #15 capsule 05/20/18 Insulin Sliding Scale [Novolog Vial Sliding Scale -] 1 vial SQ ACHS units 05/20 Levothyroxine [Synthroid -] 25 mcg PO DAILY@0700 tablet 05/20/18 Ramipril [Altace] 10 mg PO DAILY capsule 05/20/18
[2018-05-20] MEDS: RAMIPRIL 5 MG CAPSULE (FP) PO SCH (09:30)
[2018-05-20] MEDS: amLODIPine BESYLATE 10 MG TABLET (FP) PO SCH (09:30)
[2018-05-20] MEDS: POTASSIUM CHLORIDE TABS 20 MEQ TABLET.ER (FP) PO SCH (09:30)
[2018-05-20] MEDS: CEFTRIAXONE 1 GM in DEXTROSE 5%-WATER - 50 ML IVPB SCH (09:31)
[2018-05-20] MEDS: AZITHROMYCIN IVPB 500 MG/250 ML BAG IVPB SCH (09:32)
== END 2018-05-20 10:18 | disposition home or self-care (01) | DRG 202 ==
LOC: JER 12:52 → JERBED 15:12 → J8W 19:39
PROVIDERS: ADMIT Internal Medicine; ATTEND Internal Medicine
DX: J20.9 Acute bronchitis, unspecified (principal); R04.2 Hemoptysis; T80.1XXA Vascular complications following infusion, transfusion and therapeutic injection, initial encounter; I10 Essential (primary) hypertension; I80.8 Phlebitis and thrombophlebitis of other sites; E11.9 Type 2 diabetes mellitus without complications; E87.6 Hypokalemia; K74.60 Unspecified cirrhosis of liver; F10.11 Alcohol abuse, in remission; J84.10 Pulmonary fibrosis, unspecified; N63.0 Unspecified lump in unspecified breast; Z86.11 Personal history of tuberculosis; Z79.4 Long term (current) use of insulin; Z86.73 Personal history of transient ischemic attack (TIA), and cerebral infarction without residual deficits; Z95.0 Presence of cardiac pacemaker; R00.1 Bradycardia, unspecified; F31.9 Bipolar disorder, unspecified
CPT/HCPCS: 36415; 71046-TC-FY; 71250-TC; 80048; 80053; 80076; 82962; 83880; 85025; 85610; 86803; 87040; 87070; 87116; 87205; 87206; 87389; 99284-25; J7030

== ENCOUNTER 2021-11-13 07:16 | Emergency (ER) | payer OTHER ==
[2021-11-13] MEDS ORDERED: levETIRAcetam 500 MG/5 ML INJECTION VIAL IVPB ONE ×2 (07:41→07:55)
[2021-11-13] MEDS ORDERED: NICARDIPINE 25 MG in DEXTROSE 5%-WATER - 240 ML IVPB SCH (07:45)
[2021-11-13 07:50] VITALS: RESP 15
[2021-11-13 07:54] VITALS: TEMP 98
[2021-11-13 08:22] LABS: BASO % 0.4 % (0-2.0); EOS % 0.5 % (0-4.5); HEMOGLOBIN 14.6 GM/dL (10.7-15.3); LYMPH % 14.1 % (8-40); MCH 30.3 pg (25.7-33.7); MCHC 33.9 g/dl (32.0-36.0); MEAN CELL VOLUME 89.2 fl (80-96); MEAN PLT VOLUME 7.7 fl (7.5-11.1); MONO % 8.8 % (3.8-10.2); NEUT % 76.2 % (42.8-82.8); PLATELET COUNT 206 10^3/uL (134-434); RBC 4.82 M/mm3 (3.60-5.2); RDW 13.5 % (11.6-15.6); WHITE BLOOD COUNT 8.2 K/mm3 (4.0-10.0)
[2021-11-13 08:35] VITALS: BP 176/90; PULSE 81
[2021-11-13 08:39] LABS: CALCIUM 9.1 mg/dL (8.5-10.1)
[2021-11-13 08:40] LABS: ALBUMIN 3.6 g/dl (3.4-5.0)
[2021-11-13 08:41] LABS: BLOOD UREA NITROGEN 10.2 mg/dL (7-18)
[2021-11-13 08:44] LABS: CREATININE 0.5 mg/dL (0.55-1.3)
[2021-11-13 08:45] LABS: TOT PROT 7.6 g/dl (6.4-8.2)
[2021-11-13 08:46] LABS: BILIRUBIN,TOTAL 0.6 mg/dL (0.2-1)
[2021-11-13 08:51] LABS: EPI CELLS 3 /uL (0-25.1); HYALINE CASTS 0 /uL (0-3.1); PH,URINE 7.5 (5.0-8.0); URINE APPEARANCE CLEAR; URINE BACTERIA 3 /uL (0-1359); URINE BILIRUBIN NEGATIVE (NEGATIVE); URINE COLOR YELLOW; URINE GLUCOSE (UA) 1+ (NEGATIVE); URINE KETONE NEGATIVE (NEGATIVE); URINE LEUK ESTERASE NEGATIVE (NEGATIVE); URINE NITRITE NEGATIVE (NEGATIVE); URINE PROTEIN 2+ (NEGATIVE); URINE RBC 2 /uL (0-23.9); URINE WBC 3 /uL (0-25.8)
[2021-11-13 09:28] LABS: ACTIVATED PTT 29.8 SECONDS (25.2-36.5)
[2021-11-13 09:29] LABS: INR 1.08 (0.83-1.09); PROTHROMBIN TIME (PATIENT) 12.4 SEC (9.7-13.0)
== END 2021-11-13 08:30 | disposition short-term general hospital (02) ==
LOC: JER 07:16
PROC: 3E033GC Introduction of Other Therapeutic Substance into Peripheral Vein, Percutaneous Approach (ICD-10-PCS; principal; 2021-11-13)
DX: I61.9 Nontraumatic intracerebral hemorrhage, unspecified (principal)
CPT/HCPCS: 36415; 70450-TC; 71045-TC-FY; 80053; 80061; 81003; 82550; 82962; 83036; 84484; 85025; 85610; 85730; 86850; 86900; 86901; 93005; 93010; 99285-25; C9803-CS; U0003; U0005

== ENCOUNTER 2021-12-28 10:03 | Observation (INO) | payer OTHER ==
[2021-12-28 10:51] VITALS: BMI 29.2
[2021-12-28 11:26] LABS: BASO % 0.5 % (0-2.0); EOS % 3.1 % (0-4.5); HEMATOCRIT 43.7 % (32.4-45.2); LYMPH % 21.2 % (8-40); MCH 30.6 pg (25.7-33.7); MCHC 34.3 g/dl (32.0-36.0); MEAN CELL VOLUME 89.2 fl (80-96); MEAN PLT VOLUME 7.6 fl (7.5-11.1); MONO % 12.7 % (3.8-10.2); NEUT % 62.5 % (42.8-82.8); PLATELET COUNT 238 10^3/uL (134-434); RDW 14.8 % (11.6-15.6); WHITE BLOOD COUNT 5.2 K/mm3 (4.0-10.0)
[2021-12-28 11:37] LABS: INR 1.08 (0.83-1.09); PROTHROMBIN TIME (PATIENT) 12.4 SEC (9.7-13.0)
[2021-12-28 11:40] LABS: ACTIVATED PTT 28.9 SECONDS (25.2-36.5)
[2021-12-28 11:46] LABS: CALCIUM 11.4 mg/dL (8.5-10.1); MAGNESIUM 1.5 mg/dL (1.8-2.4)
[2021-12-28 11:48] LABS: ALBUMIN 3.2 g/dl (3.4-5.0)
[2021-12-28 11:50] LABS: CREATININE 0.6 mg/dL (0.55-1.3); PHOSPHOROUS 3.2 mg/dL (2.5-4.9)
[2021-12-28 11:52] LABS: BILIRUBIN,TOTAL 0.6 mg/dL (0.2-1); TOT PROT 7.3 g/dl (6.4-8.2)
[2021-12-28] MEDS ORDERED: metoPROLOL SUCCINATE 25 MG TAB.SR.24H (FP) PO SCH (14:45)
[2021-12-28] MEDS ORDERED: ACETAMINOPHEN 325 MG TABLET (FP) ONE (20:10)
[2021-12-28] MEDS: ACETAMINOPHEN 325 MG TABLET (FP) PO PRN (20:12)
[2021-12-28] MEDS ORDERED: ATORVASTATIN CA 40 MG TABLET (FP) ONE (23:40)
[2021-12-28] MEDS: INSULIN (LEVEMIR) 100 UNITS/ML UNITS SQ SCH (23:44)
[2021-12-28] MEDS: ATORVASTATIN CA 40 MG TABLET (FP) PO SCH (23:45)
[2021-12-29] MEDS: AMITRIPTYLINE HCL 25 MG TABLET PO SCH ×2 (05:10→22:50)
[2021-12-29 07:30] LABS: BASO % 0.3 % (0-2.0); EOS % 3.1 % (0-4.5); HEMATOCRIT 42.6 % (32.4-45.2); HEMOGLOBIN 14.6 GM/dL (10.7-15.3); MCH 30.5 pg (25.7-33.7); MCHC 34.3 g/dl (32.0-36.0); MEAN CELL VOLUME 88.7 fl (80-96); MEAN PLT VOLUME 7.6 fl (7.5-11.1); NEUT % 55.6 % (42.8-82.8); PLATELET COUNT 243 10^3/uL (134-434); RBC 4.81 M/mm3 (3.60-5.2); RDW 14.3 % (11.6-15.6); WHITE BLOOD COUNT 5.8 K/mm3 (4.0-10.0)
[2021-12-29 07:47] LABS: BLOOD UREA NITROGEN 13.1 mg/dL (7-18); CALCIUM 11.1 mg/dL (8.5-10.1)
[2021-12-29 07:48] LABS: ALBUMIN 3.3 g/dl (3.4-5.0)
[2021-12-29 07:50] LABS: CREATININE 0.5 mg/dL (0.55-1.3)
[2021-12-29 07:53] LABS: BILIRUBIN,TOTAL 0.6 mg/dL (0.2-1); TOT PROT 7.6 g/dl (6.4-8.2)
[2021-12-29] MEDS: INSULIN SLIDING SCALE (NOVOLOG) 1 VIAL SQ SCH ×4 (10:00→23:31)
[2021-12-29] MEDS: amLODIPine BESYLATE 10 MG TABLET (FP) PO SCH (10:02)
[2021-12-29] MEDS: RAMIPRIL 5 MG CAPSULE PO SCH (10:02)
[2021-12-29] MEDS: LEVOTHYROXINE NA 25 MCG TABLET (FP) PO SCH (10:02)
[2021-12-29] MEDS ORDERED: amLODIPine BESYLATE 10 MG TABLET (FP) ONE (10:03)
[2021-12-29] MEDS ORDERED: LEVOTHYROXINE NA 25 MCG TABLET (FP) ONE (10:04)
[2021-12-29] MEDS ORDERED: RAMIPRIL 5 MG CAPSULE ONE (10:04)
[2021-12-29] MEDS ORDERED: ACETAMINOPHEN 325 MG TABLET (FP) ONE (14:34)
[2021-12-29] MEDS: ACETAMINOPHEN 325 MG TABLET (FP) PO PRN (14:35)
[2021-12-29] MEDS: ATORVASTATIN CA 40 MG TABLET (FP) PO SCH (22:24)
[2021-12-29] MEDS: INSULIN (LEVEMIR) 100 UNITS/ML UNITS SQ SCH (22:30)
[2021-12-30] MEDS: INSULIN SLIDING SCALE (NOVOLOG) 1 VIAL SQ SCH ×4 (06:11→21:38)
[2021-12-30] MEDS: LEVOTHYROXINE NA 25 MCG TABLET (FP) PO SCH (06:12)
[2021-12-30] MEDS: amLODIPine BESYLATE 10 MG TABLET (FP) PO SCH (09:52)
[2021-12-30] MEDS: RAMIPRIL 5 MG CAPSULE PO SCH (09:52)
[2021-12-30] MEDS: SODIUM CHLORIDE 1,000 ML IV SCH ×2 (12:00→21:22)
[2021-12-30 12:21] VITALS: RESP 18
[2021-12-30] MEDS ORDERED: PNEUMOC 20-VAL CONJ-DIP CRM/PF 0.5 ML SYRINGE IM ONE ×2 (15:00→23:15)
[2021-12-30] MEDS: ATORVASTATIN CA 40 MG TABLET (FP) PO SCH (21:24)
[2021-12-30] MEDS: ACETAMINOPHEN 325 MG TABLET (FP) PO PRN (21:24)
[2021-12-30] MEDS: AMITRIPTYLINE HCL 25 MG TABLET PO SCH (21:38)
[2021-12-30] MEDS: INSULIN (LEVEMIR) 100 UNITS/ML UNITS SQ SCH (21:39)
[2021-12-31] MEDS: LEVOTHYROXINE NA 25 MCG TABLET (FP) PO SCH (06:41)
[2021-12-31] MEDS: INSULIN SLIDING SCALE (NOVOLOG) 1 VIAL SQ SCH ×3 (06:42→12:18)
[2021-12-31 09:12] VITALS: BP 114/68; PULSE 84; TEMP 98.8
[2021-12-31] MEDS: amLODIPine BESYLATE 10 MG TABLET (FP) PO SCH (09:13)
[2021-12-31] MEDS: RAMIPRIL 5 MG CAPSULE PO SCH (09:13)
[2021-12-31] MEDS ORDERED: SODIUM CHLORIDE 1,000 ML IV SCH (10:08)
[2021-12-31 13:11] LABS: CALCIUM 10.2 mg/dL (8.5-10.1)
[2021-12-31 13:15] LABS: PHOSPHOROUS 2.4 mg/dL (2.5-4.9)
[2021-12-31 13:40] LABS: MAGNESIUM 1.6 mg/dL (1.8-2.4)
== END 2021-12-31 14:33 ==
LOC: JER 10:03 → JERBED 14:00 → J4W 12-29 20:33
PROVIDERS: ADMIT Internal Medicine; ATTEND Internal Medicine
PROC: 3E013VG Introduction of Insulin into Subcutaneous Tissue, Percutaneous Approach (ICD-10-PCS; principal; 2021-12-28)
PROC: 3E0234Z Introduction of Serum, Toxoid and Vaccine into Muscle, Percutaneous Approach (ICD-10-PCS; 2021-12-28)
PROC: 3E0337Z Introduction of Electrolytic and Water Balance Substance into Peripheral Vein, Percutaneous Approach (ICD-10-PCS; 2021-12-28)
DX: R07.9 Chest pain, unspecified (principal); I69.359 Hemiplegia and hemiparesis following cerebral infarction affecting unspecified side; E11.9 Type 2 diabetes mellitus without complications; E83.52 Hypercalcemia; R94.5 Abnormal results of liver function studies; I69.398 Other sequelae of cerebral infarction; R00.1 Bradycardia, unspecified; A15.9 Respiratory tuberculosis unspecified; Z95.0 Presence of cardiac pacemaker
CPT/HCPCS: 0241U-QW; 36415; 70450-TC; 71045-TC-FY; 71275-TC; 80053; 80061; 82306; 82310; 82330; 82550; 82962; 83036; 83735; 83970; 84100; 84443; 84484; 85025; 85610; 85730; 90677; 93005; 93010; 96360; 96372; 97116-GP; 99285-25; G0378; Q9967

== ENCOUNTER 2022-10-03 14:51 | Inpatient (IN) | payer OTHER ==
[2022-10-03] MEDS ORDERED: IBUPROFEN 400 MG TABLET (FP) PO ONE ×2 (16:01→16:52)
[2022-10-03 17:11] LABS: BASO % 0.1 % (0-2.0); EOS % 0.3 % (0-4.5); HEMATOCRIT 46.5 % (32.4-45.2); HEMOGLOBIN 15.8 GM/dL (10.7-15.3); LYMPH % 21.2 % (8-40); MCH 28.7 pg (25.7-33.7); MEAN CELL VOLUME 84.5 fl (80-96); MEAN PLT VOLUME 7.4 fl (7.5-11.1); MONO % 8.9 % (3.8-10.2); NEUT % 69.5 % (42.8-82.8); PLATELET COUNT 229 10^3/uL (134-434); WHITE BLOOD COUNT 6.6 K/mm3 (4.0-10.0)
[2022-10-03 17:38] LABS: CHLORIDE 102 mmol/L (98-107); POTASSIUM 4.6 mmol/L (3.5-5.1); SODIUM 135 mmol/L (136-145)
[2022-10-03 17:40] LABS: CALCIUM 9.8 mg/dL (8.5-10.1)
[2022-10-03 17:41] LABS: ALBUMIN 3.7 g/dl (3.4-5.0); ANION GAP 8 MMOL/L (8-16); BLOOD UREA NITROGEN 11.3 mg/dL (7-18); CO2 25 mmol/L (21-32)
[2022-10-03 17:44] LABS: CREATININE 0.8 mg/dL (0.55-1.3); SGOT/AST 28 U/L (15-37); SGPT/ALT 46 U/L (13-61)
[2022-10-03 17:47] LABS: ALK PHOS 129 U/L (45-117); BILIRUBIN,TOTAL 0.5 mg/dL (0.2-1); TOT PROT 7.8 g/dl (6.4-8.2)
[2022-10-03 17:53] LABS: GLUCOSE,RANDOM 476 mg/dL (74-106)
[2022-10-03] MEDS ORDERED: INSULIN REGULAR HUMAN 100 UNITS/ML *VIAL IVPUSH ONE (18:39)
[2022-10-03] MEDS ORDERED: ACETAMINOPHEN 325 MG TABLET (FP) PO ONE (22:36)
[2022-10-03] MEDS ORDERED: ACETAMINOPHEN 325 MG TABLET (FP) ONE (22:40)
[2022-10-04 03:38] VITALS: BMI 26.1
[2022-10-04] MEDS ORDERED: DEXTROSE 5%-0.45% SALINE 1,000 ML IV SCH (04:15)
[2022-10-04] MEDS ORDERED: ACETAMINOPHEN 325 MG TABLET (FP) PO PRN (05:00)
[2022-10-04] MEDS: LEVOTHYROXINE NA 25 MCG TABLET (FP) PO SCH (06:11)
[2022-10-04] MEDS: INSULIN SLIDING SCALE (NOVOLOG) 1 VIAL SQ SCH ×4 (06:13→21:53)
[2022-10-04 08:52] LABS: BASO % 0.5 % (0-2.0); EOS % 0.8 % (0-4.5); HEMATOCRIT 45.7 % (32.4-45.2); HEMOGLOBIN 15.4 GM/dL (10.7-15.3); LYMPH % 29.3 % (8-40); MCH 28.6 pg (25.7-33.7); MCHC 33.6 g/dl (32.0-36.0); MEAN PLT VOLUME 7.9 fl (7.5-11.1); MONO % 8.9 % (3.8-10.2); NEUT % 60.5 % (42.8-82.8); PLATELET COUNT 214 10^3/uL (134-434); RBC 5.37 M/mm3 (3.60-5.2); RDW 14.5 % (11.6-15.6); WHITE BLOOD COUNT 5.8 K/mm3 (4.0-10.0)
[2022-10-04 09:10] LABS: POTASSIUM 3.7 mmol/L (3.5-5.1)
[2022-10-04 09:14] LABS: BLOOD UREA NITROGEN 11.1 mg/dL (7-18); CALCIUM 9.7 mg/dL (8.5-10.1)
[2022-10-04 09:16] LABS: CREATININE 0.5 mg/dL (0.55-1.3)
[2022-10-04] MEDS: amLODIPine BESYLATE 10 MG TABLET (FP) PO SCH (09:30)
[2022-10-04] MEDS: RAMIPRIL 5 MG CAPSULE PO SCH (09:31)
[2022-10-04] MEDS ORDERED: INSULIN (NOVOLOG) ASPART 100 UNITS/ML 10ML VIAL ONE ×2 (12:14→16:38)
[2022-10-04] MEDS: NORTRIPTYLINE HCL 25 MG CAPSULE PO SCH (21:53)
[2022-10-04] MEDS: ATORVASTATIN CA 40 MG TABLET (FP) PO SCH (21:53)
[2022-10-05] MEDS: LEVOTHYROXINE NA 25 MCG TABLET (FP) PO SCH (06:57)
[2022-10-05] MEDS: INSULIN SLIDING SCALE (NOVOLOG) 1 VIAL SQ SCH ×4 (06:58→21:45)
[2022-10-05] MEDS: RAMIPRIL 5 MG CAPSULE PO SCH (10:08)
[2022-10-05] MEDS: amLODIPine BESYLATE 10 MG TABLET (FP) PO SCH (10:08)
[2022-10-05] MEDS ORDERED: INSULIN (NOVOLOG) ASPART 100 UNITS/ML 10ML VIAL ONE (10:41)
[2022-10-05] MEDS: ATORVASTATIN CA 40 MG TABLET (FP) PO SCH (21:40)
[2022-10-05] MEDS: NORTRIPTYLINE HCL 25 MG CAPSULE PO SCH (21:40)
[2022-10-05] MEDS: INSULIN (LEVEMIR) 100 UNITS/ML UNITS SQ SCH (21:41)
[2022-10-06] MEDS: INSULIN SLIDING SCALE (NOVOLOG) 1 VIAL SQ SCH ×4 (06:12→21:47)
[2022-10-06] MEDS: LEVOTHYROXINE NA 25 MCG TABLET (FP) PO SCH (06:13)
[2022-10-06] MEDS: RAMIPRIL 5 MG CAPSULE PO SCH (11:23)
[2022-10-06] MEDS: amLODIPine BESYLATE 10 MG TABLET (FP) PO SCH (11:23)
[2022-10-06] MEDS ORDERED: INSULIN (NOVOLOG) ASPART 100 UNITS/ML 10ML VIAL ONE (12:08)
[2022-10-06] MEDS ORDERED: POLYETHYLENE GLYCOL (HEALTHYLAX) 3350 17 GM PACKET PO PRN (18:41)
[2022-10-06] MEDS: ATORVASTATIN CA 40 MG TABLET (FP) PO SCH (21:42)
[2022-10-06] MEDS: NORTRIPTYLINE HCL 25 MG CAPSULE PO SCH (21:42)
[2022-10-06] MEDS: INSULIN (LEVEMIR) 100 UNITS/ML UNITS SQ SCH (21:46)
[2022-10-06] MEDS ORDERED: DOCUSATE SODIUM 100 MG CAPSULE (FP) PO SCH (22:00)
[2022-10-07] MEDS: LEVOTHYROXINE NA 25 MCG TABLET (FP) PO SCH (06:26)
[2022-10-07] MEDS: INSULIN SLIDING SCALE (NOVOLOG) 1 VIAL SQ SCH ×3 (06:33→17:10)
[2022-10-07] MEDS: amLODIPine BESYLATE 10 MG TABLET (FP) PO SCH (09:21)
[2022-10-07] MEDS: RAMIPRIL 5 MG CAPSULE PO SCH (09:21)
[2022-10-07] MEDS ORDERED: INSULIN (NOVOLOG) ASPART 100 UNITS/ML 10ML VIAL ONE (12:24)
[2022-10-07 14:44] VITALS: BP 107/63; PULSE 69; RESP 15; TEMP 97.7
== END 2022-10-07 19:23 | DRG 563 ==
LOC: JER 14:51 → JERBED 22:22 → J6S 10-04 02:01
PROVIDERS: ADMIT Internal Medicine; ATTEND Internal Medicine
DX: S42.102A Fracture of unspecified part of scapula, left shoulder, initial encounter for closed fracture (principal); I69.354 Hemiplegia and hemiparesis following cerebral infarction affecting left non-dominant side; I10 Essential (primary) hypertension; E78.5 Hyperlipidemia, unspecified; Z95.0 Presence of cardiac pacemaker; E03.9 Hypothyroidism, unspecified; E11.65 Type 2 diabetes mellitus with hyperglycemia; M25.562 Pain in left knee; Z99.3 Dependence on wheelchair; K59.00 Constipation, unspecified; Z79.84 Long term (current) use of oral hypoglycemic drugs; W19.XXXA Unspecified fall, initial encounter; Y93.89 Activity, other specified; Y92.009 Unspecified place in unspecified non-institutional (private) residence as the place of occurrence of the external cause; Y99.8 Other external cause status
CPT/HCPCS: 0241U-QW; 36415; 70450-TC; 71045-TC-FY; 72125-TC; 73030-TC-LT-FY; 73200-TC-RT; 73560-TC-LT-FY; 80048; 80053; 82962; 83036; 84443; 84484; 85025; 93005; 93010; 97116-GP; 97162-GP; 99285-25